=== PATIENT | female | born 1975 | race Caucasian/White ===

== ENCOUNTER → 2016-04-25 | Outpatient (CLI) | payer OTHER ==
--- NOTE | 2016-04-25 15:00 | US ---
Ultrasound of the Abdomen Complete History: R 10.11 right upper quadrant Abdominal pain. Z 90.49, Z 87.19 Comparison: Ultrasound and CT from 2012. Findings: Iliac system: Gallbladder surgically absent. Common bile duct is 3 mm in diameter which is normal. Liver: Liver measures 11 cm in length. In the right lobe of the liver there is a slightly complex cys tic lesion measuring 1.7 x 1.6 x 1.5 cm previous measuring 1.9 x 1.9 x 1.8 cm the slight mural nodula rity similar to previous study. Renal: Right kidney measures 11 x 5.5 x 4.3 cm and left kidney 10.6 x 4.6 x 5.3 cm without hydronephr osis in either kidney. Spleen: Homogeneous and 10 cm in length without splenomegaly. Pancreas: Homogeneous without peripancreatic fluid. Aorta: Visualized upper abdominal aorta demonstrates no aneurysm. IVC: Grossly patent. Impression: 1. Prior cholecystectomy without biliary ductal dilation. 2. Probably benign hepatic cyst in the right lobe measuring 1.7 x 1.6 x 1.5 cm, smaller than previous study from 2012. 3. No hepatosplenomegaly or ascites. 4. No hydronephrosis. 5. Consider additional CT imaging if clinically indicated. A Call Requested test result notification was sent via the [employer] service, 2:58:25 PM, 04/25/2016, [facility] Message ID [id number].
== END ==
LOC: FIMAGING 13:43
PROVIDERS: ATTEND Family Medicine
DX: R10.11 Right upper quadrant pain (principal)